=== PATIENT | female | born 1970 | race Caucasian/White ===

== ENCOUNTER 2016-10-24 13:11 | Emergency (ER) | payer OTHER ==
[~2016-10-24] VITALS: Ht 157.5 cm; Wt 52.9 kg
[~2016-10-24 13:11] MED LIST: ADVIL,NUPRIN,M200 MG PO; ALBUTEROL SULF8.5 GM IH; ALLERGY RELIEF10 M1 PO; ASPIR-LOW81 MG PO; AUGMENTIN875 MG PO; BUSPAR7.5 MG PO; CIPRO500 MG PO; ELAVIL25 MG PO; ESKALITH300 MG PO; Ecotrin PO; FLEXERIL10 MG PO; KLONOPIN0.5 M1 PO; LITHIUM; LITHIUM CARBON300 MG PO; LORTAB 5-325 M1 EACH PO; MEDROL DOSEPAK4 MG PO; MIRALAX17 GM PO; MOTRIN IB200 MG PO; MOTRIN600 MG PO; MOTRIN800 MG PO; PERCOCET 5/31 TABLET PO; Proventil,Ventolin H IH; ROBITUSSIN AC,T10 ML PO; TEGRETOL-XR,CA400 MG PO; TORADOL10 MG PO; TRILEPTAL300 MG PO; TYLENOL EXTRA500 MG PO; VENTOLIN HFA18 GM IH; VISTARIL50 MG PO; XANAX0.25 MG PO; ZOFRAN ODT4 MG PO; ZOFRAN4 MG PO; Zithromax PO; Zocor PO; [UNRECOGNIZED DRUG - REMARK]
[2016-10-24 14:00] LABS: HEMATOCRIT 37.5 % (36.0-46.0); MCH 31.7 PG (29.0-34.0); MCHC 33.9 G/DL (30.0-36.0); MCV 93.5 FL (83-99); MEAN PLAT.VOLUME 10.4 uM^3 (9.5-12.4); PLATELET COUNT 293 K/uL (156-360); RBC DIS.WIDTH-CV 12.8 % (11.8-14.6); RBC DIS.WIDTH-SD 42.4 % (39-53); RED BLOOD COUNT 4.01 M/uL (3.80-5.20); WHITE BLOOD COUNT 12.4 K/uL (4.1-10.2)
[2016-10-24 14:35] LABS: CHLORIDE 105 mEq/L (99-109); POTASSIUM 3.8 mEq/L (3.7-5.4); SODIUM 134 mEq/L (136-147)
[2016-10-24 14:38] LABS: GLUCOSE 108 mg/dL (70-99)
[2016-10-24 14:39] LABS: ANION GAP 9 MEQ/L (2-14)
[2016-10-24 14:41] LABS: ALKALINE PHOSPHATASE 149 IU/L (3-129); GFR ESTIMATE (CALCULATED) 57 mL/min/
[2016-10-24 14:42] LABS: UREA NITROGEN (BUN) 11 mg/dL (9-23)
[2016-10-24 16:04] LABS: LIPASE 11 U/L (1.0-51.0)
[2016-10-24 16:31] LABS: ADD MIUA? YES; BILIRUBIN SMALL; BLOOD MODERATE; COLOR DK YELLOW ((YELLOW)); GLUCOSE (STRIP) 100; KETONES NEGATIVE; LEUKOCYTES LARGE; NITRITE NEGATIVE; PROTEIN (STRIP) 100; SPECIFIC GRAVITY 1.018 (1.000-1.030)
[2016-10-24 17:26] LABS: BACTERIA 4+; CASTS NONE SEEN /LPF; EPITHELIAL CELLS NONE SEEN; MUCUS NONE SEEN; RED BLOOD CELLS 40-50 /HPF (0-5); UCUL ADDED? YES
[2016-10-24 17:27] LABS: CRYSTALS NONE SEEN
[2016-10-24] MEDS ORDERED: CIPRO500 MG PO (18:31)
[2016-10-24] MEDS ORDERED: ULTRAM50 MG PO (18:32)
[2016-10-24] MEDS ORDERED: MOTRIN600 MG PO (18:32)
[2016-10-24 18:40] VITALS: BP 157/81
[2016-10-25 11:56] LABS: HBSG INDEX 0.16; HPCA INDEX 0.14
[2016-10-25 11:57] LABS: ANTI-HEPATITIS A VIRUS (IGM) Nonreactive; HAV INDEX 0.17
[2016-10-25 11:58] LABS: ANTI-HEPATITIS B CORE (IGM) Nonreactive; HBC IgM INDEX 0.07
== END 2016-10-24 18:51 | disposition home or self-care (01) ==
LOC: EME 13:11
PROVIDERS: Physician Assistant
DX: N12 Tubulo-interstitial nephritis, not specified as acute or chronic (principal); R79.89 Other specified abnormal findings of blood chemistry; R11.2 Nausea with vomiting, unspecified; R00.0 Tachycardia, unspecified; Z87.891 Personal history of nicotine dependence
CPT/HCPCS: 74176; 80053; 80074; 81003; 83690; 85027; 87040; 87077; 87086; 87186; 99281; 99285; J0696; J7030; J7050

== ENCOUNTER 2017-04-08 00:13 | Emergency (ER) | payer OTHER ==
[~2017-04-08] VITALS: Ht 157.5 cm; Wt 47.2 kg
[~2017-04-08 00:13] MED LIST changes: +ULTRAM50 MG PO
[2017-04-08] MEDS ORDERED: NAPROSYN500 MG PO (01:24)
[2017-04-08] MEDS ORDERED: ULTRAM50 MG PO (01:24)
== END 2017-04-08 01:41 | disposition home or self-care (01) ==
LOC: EME 00:13
DX: M79.671 Pain in right foot (principal); G89.29 Other chronic pain
CPT/HCPCS: 73630; 99281; 99284

== ENCOUNTER 2017-06-13 13:10 | Observation (INO) | payer OTHER ==
[~2017-06-13] VITALS: Ht 157.5 cm; Wt 50.6 kg
[~2017-06-13 13:10] MED LIST changes: -ELAVIL25 MG PO; +ELAVIL75 MG PO; -KLONOPIN0.5 M1 PO; +KLONOPIN1 MG PO; +NAPROSYN500 MG PO; -TRILEPTAL300 MG PO; +TRILEPTAL600 MG PO
[2017-06-13 14:14] LABS: EOSINOPHIL (%) 6.1 % (0-5); EOSINOPHIL COUNT 0.3 K/uL (0-0.3); HEMATOCRIT 35.5 % (36.0-46.0); IMMATURE GRANULOCYTE (%) 0.4 % (0.0-0.7); INSTRUMENT ABS NEUTROPHIL CT 3.1 K/uL; MCH 31.4 PG (29.0-34.0); MCHC 34.1 G/DL (30.0-36.0); MCV 92.2 FL (83-99); MONOCYTE COUNT 0.4 K/uL (0-0.8); NEUTROPHIL (%) 64.8 % (45-76); NEUTROPHIL COUNT 3.1 K/uL (1.8-6.4); PLATELET COUNT 292 K/uL (156-360); RBC DIS.WIDTH-CV 12.5 % (11.8-14.6); RBC DIS.WIDTH-SD 42.5 % (39-53); RED BLOOD COUNT 3.85 M/uL (3.80-5.20); WHITE BLOOD COUNT 4.7 K/uL (4.1-10.2)
[2017-06-13 14:24] LABS: CHLORIDE 104 mEq/L (99-109); POTASSIUM 4.1 mEq/L (3.7-5.4); SODIUM 134 mEq/L (136-147)
[2017-06-13 14:26] LABS: GLUCOSE 94 mg/dL (70-99)
[2017-06-13 14:27] LABS: ANION GAP 9 MEQ/L (2-14)
[2017-06-13 14:30] LABS: GFR ESTIMATE (CALCULATED) > 59 mL/min/
[2017-06-13 14:31] LABS: UREA NITROGEN (BUN) 10 mg/dL (9-23)
[2017-06-13 14:35] LABS: TROP-I INTERPRETATION NEGATIVE; TROPONIN-I < 0.01 ng/mL (0.0-0.30)
[2017-06-13] MEDS ORDERED: FLUOXETINE HCL20 MG PO (15:39)
[2017-06-13] MEDS ORDERED: ZOFRAN ODT4 MG PO (15:39)
[2017-06-13] MEDS ORDERED: MINIPRESS1 MG PO (15:40)
[2017-06-13] MEDS ORDERED: BACLOFEN10 MG PO (15:40)
[2017-06-13] MEDS ORDERED: GEODON40 MG PO (15:40)
[2017-06-13 18:18] VITALS: BP 166/75
[2017-06-13 20:54] LABS: TROP-I INTERPRETATION NEGATIVE; TROPONIN-I 0.01 ng/mL (0.0-0.30)
[2017-06-14 00:30] VITALS: BP 115/53
[2017-06-14 03:34] LABS: TROP-I INTERPRETATION NEGATIVE; TROPONIN-I < 0.01 ng/mL (0.0-0.30)
[2017-06-14 04:51] LABS: ADD MIUA? YES; BILIRUBIN NEGATIVE; BLOOD NEGATIVE; COLOR YELLOW ((YELLOW)); GLUCOSE (STRIP) NEGATIVE; KETONES NEGATIVE; LEUKOCYTES MODERATE; NITRITE NEGATIVE; PROTEIN (STRIP) NEGATIVE; UROBILINOGEN 0.2 MG/DL (0.2-1.0)
[2017-06-14 05:00] VITALS: BP 131/60
[2017-06-14 05:30] LABS: AMPHETAMINES QUANT VALUE 0 NG/ML; BARBITUATES QUANT VALUE 0 NG/ML; BENZODIAZEPINES QUANT VALUE 0 NG/ML; BENZODIAZEPINES, URINE SCREEN Negative (200 ng/mL); MARIJUANA QUANT VALUE 0 NG/ML; OPIATES QUANTITATIVE VALUE 0 NG/ML; PHENCYCLIDINE QUANT VALUE 0 NG/ML
[2017-06-14 05:31] LABS: BACTERIA 3+ /HPF; CASTS NONE SEEN /LPF; CRYSTALS NONE SEEN; EPITHELIAL CELLS 1+ /HPF; MUCUS NONE SEEN /LPF; RED BLOOD CELLS 0-5 /HPF (0-5); UCUL ADDED? YES; WHITE BLOOD CELLS 20-30 /HPF (0-5)
[2017-06-14 08:05] VITALS: BP 142/67
[2017-06-14 12:00] VITALS: BP 166/71
[2017-06-14] MEDS ORDERED: CEFTIN250 MG PO (12:11)
== END 2017-06-14 13:33 | disposition home or self-care (01) ==
LOC: EME 13:10 → EDOF 16:43 → ENRESERV 16:43 → 5WEST 16:43 → EDOF 16:43 → ENRESERV 16:52 → 5WEST 18:12
PROVIDERS: Emergency Medicine; Internal Medicine; Physician Assistant Medical
DX: R55 Syncope and collapse (principal); E87.1 Hypo-osmolality and hyponatremia; F31.89 Other bipolar disorder; F41.9 Anxiety disorder, unspecified; Z82.49 Family history of ischemic heart disease and other diseases of the circulatory system; Z83.3 Family history of diabetes mellitus; Z88.8 Allergy status to other drugs, medicaments and biological substances
CPT/HCPCS: 70450; 71010; 71275; 80048; 80306 90; 81003; 84484; 85025; 85379; 87077; 87086; 87186; 93005; 94640; 94640 76; 99202; 99281; 99285; G0378; J1650; J7030

== ENCOUNTER 2018-01-27 05:21 | Day surgery (SDC) | payer OTHER ==
[~2018-01-27] VITALS: Ht 170.2 cm; Wt 49.0 kg
[~2018-01-27 05:21] MED LIST changes: +AMITRIPTYLINE100 MG PO; +BACLOFEN10 MG PO; +CEFTIN250 MG PO; +FLUOXETINE HCL20 MG PO; +GEODON40 MG PO; +GEODON60 MG PO; +MINIPRESS1 MG PO; +TRILEPTAL300 MG PO
[2018-01-27 06:15] VITALS: BP 168/89
[2018-01-27 13:01] VITALS: BP 170/84
[2018-01-27 16:05] VITALS: BP 171/93
[2018-01-27 19:18] VITALS: BP 158/77
[2018-01-27 23:35] VITALS: BP 129/61
[2018-01-28 03:37] VITALS: BP 101/60
[2018-01-28 06:10] LABS: HEMATOCRIT 28.1 % (36.0-46.0); HEMOGLOBIN 9.5 G/DL (11.9-15.5); MCH 31.7 PG (29.0-34.0); MCHC 33.8 G/DL (30.0-36.0); MCV 93.7 FL (83-99); PLATELET COUNT 248 K/uL (156-360); RBC DIS.WIDTH-CV 12.8 % (11.8-14.6); RBC DIS.WIDTH-SD 44.3 % (39-53); WHITE BLOOD COUNT 5.6 K/uL (4.1-10.2)
[2018-01-28 06:27] LABS: CHLORIDE 104 MEQ/L (99-109); GFR ESTIMATE (CALCULATED) > 59 mL/min/; GLUCOSE 106 mg/dL (70-99); POTASSIUM 3.8 MEQ/L (3.7-5.4); SODIUM 136 MEQ/L (136-147); UREA NITROGEN (BUN) 11 mg/dL (9-23)
[2018-01-28 07:18] VITALS: BP 110/71
[2018-01-28] MEDS ORDERED: ROXICODONE5 MG PO (08:17)
[2018-01-28] MEDS ORDERED: MOTRIN600 MG PO (08:17)
[2018-01-28 09:32] LABS: ALBUMIN 3.1 G/DL (3.2-4.8); ALKALINE PHOSPHATASE 58 IU/L (3-129); ALT (GPT) 49 IU/L (3-49); AMYLASE 36 IU/L (1-118); AST (GOT) 30 IU/L (2-34); DIRECT BILIRUBIN 0.1 mg/dL (0.0-0.3); LIPASE 9 U/L (1.0-51.0); TOTAL BILIRUBIN 0.3 MG/DL (0.0-1.0); TOTAL PROTEIN 5.5 G/DL (6.4-8.3)
== END 2018-01-28 11:10 | disposition home or self-care (01) ==
LOC: SDC 05:21 → 2SOUTH 10:30 → 2EASTP 10:30 → 2SOUTH 10:30 → ENRESERV 10:31 → 2EASTP 12:35 → SDC 13:00 → 2EASTP 01-28 11:10
PROVIDERS: Obstetrics & Gynecology
DX: N80.0 Endometriosis of uterus (principal); N83.8 Other noninflammatory disorders of ovary, fallopian tube and broad ligament; N94.6 Dysmenorrhea, unspecified; N94.10 Unspecified dyspareunia; K66.0 Peritoneal adhesions (postprocedural) (postinfection); N83.6 Hematosalpinx
CPT/HCPCS: 80048; 80076; 82150; 83690; 85027; 88307; 99202; G0378; J0330; J0690; J1100; J1885; J2001; J2250; J2405; J2710; J2795; J3010; J3475; J7120; J7643; Q0175; S0020